=== PATIENT | male | born 1945 | race American Indian/Alaskan Native ===

== ENCOUNTER 2016-03-07 08:35 | Day surgery (SDC) | payer OTHER, MEDICARE ==
[2016-03-07 09:15] LABS: Hematocrit 50.2 % (35.5-45.6); Hemoglobin 16.4 gm/dl (11.8-15.2); Mean Corpuscular HGB Conc 33 % (32-34); Mean Corpuscular Hemoglobin 28 pg (28-32); Mean Corpuscular Volume 84 fl (84-94); Platelet Count 162 K/mm3 (140-440); Red Blood Count 5.95 M/mm3 (3.65-5.03); Red Cell Distribution Width 12.8 % (13.2-15.2); White Blood Count 4.1 K/mm3 (4.5-11.0)
[2016-03-07] MEDS ORDERED: PERCOCET 5/325 PO PRN (09:19)
[2016-03-07] MEDS ORDERED: DILAUDID IV PRN (09:19)
--- NOTE | 2016-03-07 09:20 | Anesthesia Day of Surgery ---
Anesthesia Day of Surgery - Day of Surgery Patient Examined: Yes Patient H&P Reviewed: Yes Patient is NPO: Yes
--- NOTE | 2016-03-07 09:20 | Anesthesia Consultation ---
Anesthesia Consult and Med Hx Date of service: 03/07/16 - Airway Anesthetic Teeth Evaluation: Good ROM Head & Neck: Adequate Mental/Hyoid Distance: Adequate Mallampati Class: Class II Intubation Access Assessment: Probably Good - Pulmonary Exam CTA: Yes - Cardiac Exam Cardiac Exam: RRR - Pre-Operative Health Status ASA Pre-Surgery Classification: ASA2 Proposed Anesthetic Plan: General - Pulmonary Hx Smoking: No Hx Sleep Apnea: No (GLENN PRE SCREEN HIGH GATO) - Cardiovascular System Hx Hypertension: Yes (X 15 YRS) - Endocrine Hx Non-Insulin Dependent Diabetes: No Hx Thyroid Disease: No - Other Systems Hx Cancer: Yes (RECURRENT BLADDER CA- [place] WITH CHEMO IN BLADDER)
[2016-03-07 09:27] LABS: Anion Gap 18 mmol/L; BUN/Creatinine Ratio 23.33; Blood Urea Nitrogen 28 mg/dL (9-20); Calcium 9.4 mg/dL (8.4-10.2); Carbon Dioxide 27 mmol/L (22-30); Chloride 99.8 mmol/L (98-107); Glucose 104 mg/dL (75-100); Potassium 3.8 mmol/L (3.6-5.0); Sodium 141 mmol/L (137-145)
[2016-03-07] MEDS: VERSED IV NR ×2 (09:33→09:57)
[2016-03-07] MEDS ORDERED: PEPCID PO NR (10:00)
[2016-03-07] MEDS ORDERED: LACTATED RINGERS 1,000 ML IV SCH (10:00)
[2016-03-07] MEDS ORDERED: SUBLIMAZE ONE (10:05)
[2016-03-07] MEDS ORDERED: XYLOCAINE MPF 2% ONE (10:05)
[2016-03-07] MEDS ORDERED: DIPRIVAN 10 MG/ML IV ONE (10:05)
[2016-03-07 10:13] LABS: Basophils % (Manual) 0 % (0.0-1.8); Blastocytes % (Manual) 0 %
[2016-03-07 10:15] LABS: Anisocytosis Few; Diff Status Complete
[2016-03-07] MEDS ORDERED: WATER FOR IRRIG STERILE IR ONE (10:29)
[2016-03-07] MEDS ORDERED: OMNIPAQUE (300 MG) IV ONE (10:29)
[2016-03-07] MEDS ORDERED: ePHEDrine SULFATE ONE (10:40)
[2016-03-07] MEDS ORDERED: ANCEF/STERILE WATER 2 GM/20 ML IV NR (11:00)
[2016-03-07] MEDS ORDERED: DECADRON ONE (11:07)
[2016-03-07] MEDS ORDERED: ZOFRAN ONE (11:07)
--- NOTE | 2016-03-07 11:10 | Short Stay Summary ---
Short Stay Documentation Date of service: 03/07/16 - History H&P: obtained from office - Allergies and Medications Current Medications: Allergies No Known Allergies Allergy (Verified 03/02/16 09:45) Home Medications Medication Instructions Recorded Confirmed Last Taken Type AtorvaSTATin [Lipitor] 40 mg PO DAILY 03/02/16 03/07/16 03/07/16 06:30 History 40MG Indapamide [Indapamide] 1.25 mg PO DAILY 03/02/16 03/07/16 03/07/16 06:30 History 1.25MG Verapamil ER [Calan SR] 240 mg PO DAILY 03/02/16 03/07/16 03/07/16 06:30 History 240MG Active Medications Cefazolin Sodium (Ancef/Sterile Water 2 Gm/20 Ml) 2 gm IV PREOP NR Stop: 03/07/16 23:59 Famotidine (Pepcid) 20 mg PO PREOP NR Stop: 03/07/16 23:59 Last Admin: 03/07/16 09:33 Dose: 20 mg Hydromorphone HCl (Dilaudid) 0.5 mg IV Q10MIN PRN PRN Reason: Pain , Severe (7-10) Stop: 03/07/16 16:00 Lactated Ringer's (Lactated Ringers) 1,000 mls @ 100 mls/hr IV DIRECT YONG Last Admin: 03/07/16 09:31 Dose: 100 mls/hr Midazolam HCl (Versed) 2 mg IV PREOP NR Stop: 03/07/16 23:59 Last Admin: 03/07/16 09:57 Dose: 1 mg Oxycodone/Acetaminophen (Percocet 5/325) 1 tab PO ONCE PRN PRN Reason: Pain, Moderate (4-6) Stop: 03/07/16 16:00 - Brief post op/procedure progress note Date of procedure: 03/07/16 Pre-op diagnosis: recurrent bladder tumor Post-op diagnosis: same Procedure: cysto, rpg, TURBT - left side wall, random baldder bx Anesthesia: GETA Surgeon: KALLI ROBERTO Estimated blood loss: minimal Pathology: list (bladder tumor, random bx) - Hospital course Hospital course: bactrim and norco on chart
--- NOTE | 2016-03-07 11:57 | Operative Report ---
PREOPERATIVE DIAGNOSIS: Recurrent bladder tumor, left sidewall. POSTOPERATIVE DIAGNOSIS: Recurrent bladder tumor, left sidewall. PROCEDURE: Cystoscopy, bilateral retrograde pyelograms, random bladder biopsy, posterior wall, right side wall, transurethral resection of small bladder tumor. SURGEON: Florentin Erazo MD ANESTHESIA: General. ANESTHESIOLOGIST: Piter Miller MD ESTIMATED BLOOD LOSS: Minimal. FLUIDS: Crystalloid. COMPLICATIONS: No complications. INDICATIONS: This patient is a 70-year-old gentleman known to my service. His primary care is Dr. Jose L Enrique. 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 He underwent 6 weeks of BCG. Surveillance cystoscopy revealed a small tumor on 02/25/2016. He presents now for removal. DESCRIPTION OF PROCEDURE: The patient was taken to the operative suite, placed in a supine position. After adequate general anesthesia, placed in a dorsal lithotomy position, prepped and draped in a sterile fashion. Pancystourethroscopy was performed with a 22 Sloven[place] Storz cystoscope. No urethral or prostatic abnormalities. His bladder, papillary left-sided tumor, some mild trabeculation diffusely, no other abnormalities. Bilateral retrograde pyelograms were obtained with an 8 Slovenian Hafsa catheter and 8 mL of contrast. No filling defects or obstruction. Next, cold cup biopsy forceps, posterior wall was biopsied, right side wall was biopsied. A 24-Slovenian resectoscope was used, TUR of the tumor was performed and sent for routine pathologic evaluation. The base of the biopsies and the tumor were cauterized, approximately 5 mm. Bladder was drained. He was extubated, rectal exam was benign, taken to recovery room in stable condition. JOB# [id number] [facility]
[2016-03-07 12:10] VITALS: BP 117/65
--- NOTE | 2016-03-07 12:13 | Post Anesthesia Evaluation ---
- Post Anesthesia Evaluation Patient Participated: Yes Airway Patent: Yes Stable Respiratory Function: Yes Nausea/Vomiting: No Temp > 96.8F: Yes Pain Manageable: Yes Adequeate Hydration: Yes Anesthesia Complications: No
--- NOTE | 2016-03-07 12:21 | Fluoroscopy Report ---
RETROGRADE PYELOGRAM: History: Recurrent bladder cancer. There is adequate filling of the ureters and intrarenal collecting systems with no filling defects or anatomic abnormalities identified.
== END 2016-03-07 12:20 | disposition home or self-care (01) ==
LOC: OR 08:35 → EDSEX 10:30 → OR 12:20
PROVIDERS: ATTEND Urology
DX: D49.4 Neoplasm of unspecified behavior of bladder (principal); I10 Essential (primary) hypertension; E78.00 Pure hypercholesterolemia, unspecified; Z85.51 Personal history of malignant neoplasm of bladder; Z96.651 Presence of right artificial knee joint; Z98.890 Other specified postprocedural states
CPT/HCPCS: 36415; 52234; 74420; 80048; 85007; 85025; 88305; A4217; C1758; J0690; J1100; J2250; J2405; J2704; J3010; J7120; Q9967